=== PATIENT | male | born 1990 | race Caucasian/White ===

== ENCOUNTER 2018-10-14 22:06 | Emergency (ER) | payer MEDICAID ==
[~2018-10-14] VITALS: Ht 165.1 cm; Wt 68.9 kg
[2018-10-14 22:17] VITALS: Ht 165.1 cm; Wt 68.9 kg
[2018-10-14] MEDS ORDERED: VANCOMYCIN 1 GM (PMX) 250 ML IVPB STA (23:09)
[2018-10-14] MEDS ORDERED: PIPER-TAZO 3.375 GM IV (PMX) 100 ML IVPB STA (23:09)
[2018-10-14] MEDS ORDERED: SODIUM CHLORIDE 0.9% 1L BAG IV* STA (23:09)
[2018-10-14] MEDS ORDERED: HYDROCODONE/APAP (5/325) TAB PO ONE (23:30)
--- NOTE | 2018-10-15 04:01 | ERD ---
ER Documentation Chief Complaint Chief Complaint Pt reports glass in thumb 3 days ago L hand swollen HPI 28-year-old male presenting with left thumb swelling and pain that is extending to his hand. 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 He is unsure if he was able to pull all of the glass out. Since then, his finger has been swelling and hurting progressively hurting more. Denies fevers or chills. No other associated symptoms. He denies any numbness or tingling. He is able to move the thumb without difficulty. ROS All systems reviewed and are negative except as per history of present illness. Allergies Allergies: Coded Allergies: No Known Allergy (Unverified , 10/14/18) PMhx/Soc Medical and Surgical Hx: pt denies Medical Hx, pt denies Surgical Hx Hx Miscellaneous Medical Probl: No Hx Alcohol Use: Yes Hx Substance Use: Yes (Marijuana) Hx Tobacco Use: Yes Smoking Status: Current every day smoker FmHx Family History: No diabetes Physical Exam Vitals Vital Signs Date Temp Pulse Resp B/P (MAP) Pulse Ox O2 O2 Flow FiO2 Time Delivery Rate 10/15/18 98.1 73 16 132/87 100 Room Air 05:15 (102) 10/15/18 88 16 130/80 99 Room Air 04:14 (97) 10/15/18 88 14 156/92 99 Room Air 01:00 (113) 10/14/18 98.1 95 16 141/90 100 Room Air 22:59 (107) 10/14/18 99.1 109 20 151/86 100 22:17 (107) Physical Exam Const: No acute distress Head: Atraumatic Eyes: Normal Conjunctiva Resp: Clear to auscultation bilaterally Cardio: Regular rate and rhythm, no murmurs Abd: Soft, non tender Skin: No petechiae or rashes Ext: Left upper extremity exam -left thumb is swollen and tender to palpation. There is an open wound with no active drainage. There is erythema that extends up into the hand on the radial aspect. 2+ radial pulse. Otherwise left upper extremity exam normal with no joint swelling. Full range of motion at all joints. Sensations intact in all distributions. SILT in FDWS/SF/IF. Intact OK/ TU/ X 2-3/F&E 1-5. 2+ RP. CR < 2 sec. Neur: Awake and alert Psych: Normal Mood and Affect Result Diagram: 10/14/18231910/14/182319 Results 24 hrs Laboratory Tests Test 10/14/18 23:19 10/14/18 23:20 10/15/18 02:36 POC Venous Lactate 1.1 mmol/L White Blood Count 14.1 10^3/ul Red Blood Count 4.74 10^6/ul Hemoglobin 14.0 g/dl Hematocrit 43.4 % Mean Corpuscular Volume 91.6 fl Mean Corpuscular Hemoglobin 29.5 pg Mean Corpuscular 32.3 g/dl Hemoglobin Concent Red Cell Distribution Width 11.8 % Platelet Count 299 10^3/UL Mean Platelet Volume 8.7 fl Immature Granulocytes % 0.600 % Neutrophils % 78.6 % Lymphocytes % 12.4 % Monocytes % 7.7 % Eosinophils % 0.3 % Basophils % 0.4 % Nucleated Red Blood Cells % 0.0 /100WBC Immature Granulocytes # 0.080 10^3/ul Neutrophils # 11.1 10^3/ul Lymphocytes # 1.7 10^3/ul Monocytes # 1.1 10^3/ul Eosinophils # 0.0 10^3/ul Basophils # 0.1 10^3/ul Nucleated Red Blood Cells # 0.0 10^3/ul Prothrombin Time 12.6 Sec Prothrombin Time Ratio 1.0 INR International Normalized Ratio 0.93 Activated Partial Thromboplast 39.0 Sec Time Sodium Level 140 mmol/L Potassium Level 3.7 mmol/L Chloride Level 95 mmol/L Carbon Dioxide Level 32 mmol/L Anion Gap 13 Blood Urea Nitrogen 14 mg/dl Creatinine 0.90 mg/dl Est Glomerular Filtrat Rate mL/min > 60 mL/min Glucose Level 138 mg/dl Calcium Level 9.5 mg/dl Total Bilirubin 0.3 mg/dl Direct Bilirubin 0.00 mg/dl Indirect Bilirubin 0.3 mg/dl Aspartate Amino Transf (AST/SGOT) 34 IU/L Alanine 35 IU/L Aminotransferase (ALT/SGPT) Alkaline Phosphatase 85 IU/L Total Protein 8.1 g/dl Albumin 4.3 g/dl Globulin 3.80 g/dl Albumin/Globulin Ratio 1.13 Lactic Acid Level 0.8 mmol/L Current Medications Medications Dose Sig/Praful Start Time Status Last (Trade) Ordered Route PRN Stop Time Admin Dose Reason Admin Sodium 2,070 ml BOLUS OVER 2 10/14/18 DC 10/14/18 Chloride HOURS STAT 23:09 23:30 (NS) IV* 10/14/18 23:11 Vancomycin 250 ml @ ONCE STAT 10/14/18 DC 10/15/18 HCl 125 mls/hr IVPB 23:09 00:09 10/15/18 01:08 Piperacillin 100 ml @ ONCE STAT 10/14/18 DC 10/14/18 Sod/ 200 mls/hr IVPB 23:09 23:29 Tazobactam 10/14/18 23:38 Sod 1 tab ONCE ONCE 10/14/18 DC 10/14/18 Acetaminophen PO 23:30 23:29 / 10/14/18 23:31 Hydrocodone Bitart ([place] ()) Procedures/MDM EMERGENT LABS AND DIAGNOSTIC STUDIES: Lab Results above were reviewed and interpreted by me. CBC: Leukocytosis, concerning for infection CMP: No evidence of electrolyte abnormality, renal failure, hypoglycemia, liver failure, or biliary obstruction Lactate within normal limits without evidence of sepsis or tissue hypoperfusion Radiology Results as interpreted by Radiology below were reviewed by Sudhir Alicea MD: Left thumb x-ray shows no evidence of foreign body. Soft tissue swelling noted. No bony abnormalities. Initial Nursing notes reviewed. Previous Medical Records requested via the Electronic Health Record. EMERGENCY DEPARTMENT COURSE / MEDICAL DECISION MAKING: Patient presents with possible retained foreign body in his left thumb with associated infection and cellulitis. Sepsis workup was initiated but there is no evidence of severe sepsis or septic shock. Consider flexor tenosynovitis, but exam is not consistent with this. Cannot rule out underlying thumb abscess. IV antibiotics started. Patient given vancomycin and Zosyn. X-ray does not show evidence of foreign body, however I cannot rule out any retained foreign body. As hand surgery or plastic surgery is on-call at this facility, multiple facilities were called to transfer the patient for higher level of care.[facility] accepted patient for transfer. Accepting ER MD is Dr. Sadler, [facility] stic surgeon is . Departure Diagnosis: Primary Impression: Foreign body of thumb, left, infected Additional Impression: Cellulitis of left hand Condition: Stable GETACHEW ALICEA MD Oct 15, 2018 04:01
[2018-10-15 05:15] VITALS: BP 132/87; PULSE 73; RESP 16
== END 2018-10-15 05:15 | disposition short-term general hospital (02) ==
LOC: E/R 22:06
DX: L03.114 Cellulitis of left upper limb (principal); F17.210 Nicotine dependence, cigarettes, uncomplicated; Z18.89 Other specified retained foreign body fragments
CPT/HCPCS: 36415; 73140; 80053; 83605; 85025; 85610; 85730; 87040; 96374; 96375; J2543; J3370; J7030; Z7502; Z7610